=== PATIENT | male | born 2005 | race Caucasian/White ===

== ENCOUNTER 2024-08-22 11:58 | Outpatient (AMB) | payer OTHER, SELFPAY ==
--- NOTE | 2024-08-22 12:06 | AM.OFFWIN_ITS ---
Intake Vital Signs 08/22/24 12:07 Height 6 ft Weight 173 lb BMI 23.5 Pulse 80 Pulse Source Auscultation Temp 99 F Temp Source Oral Pulse Oximetry (%) 97 Oxygen Delivery Method Room Air Intake Visit Reasons: Sore throat Allergies No Known Allergies Allergy (Verified 08/22/24 12:07) Medication List - Last Reconciled 08/22/24 by MIRNA Herrera- No Known Home Meds HPI HPI Comments History of Present Illness Details Lauri Espino PCP: [facility] History - The patient is a 19-year-old male pres enting with a sore throat. - Symptoms began the previous day, with the sore throat being initially severe. - The condition has not worsened since o nset, now described as slightly leather fitter but persistent. - Throat spray offered only minor relief , with no administration of systemic analgesics such as acetaminophen or ibuprofen. - No notable systemic symptoms: no stoma ch ache, ear pain, or recent travel. Physical Exam General: Awake, alert. No apparent distress Eyes: Sclera and conjunctiva clear bilaterally Nose: Nares patent, turbinates within normal limits, no sinus tenderness with palpation bilaterally Ears: Tympanic membranes intact bilat, mildly full on L Throat: Moist mucosa membrane, pharynx + erythema no exudate, uvula midline, managing secretions, no ac adenopathy Cardiovascular: Regular rate and rhythm Respiratory: Clear to auscultation bilaterally, normal breathing observed Results Rapid strep negative Viral swab obtained results pending Assessment and Plan 1. Pharyngitis: Negative strep; Viral sw ab pending. He will be called w/ results out of work/school note today + tomorrow supportive care otc analgesics, fluids, rest EDU on reasons to RTO Patient Instructions - Use throat spray as needed for minor r elief. - Stay hydrated and maintain regular eat ing habits. - Follow up for further instructions bas ed on test outcomes. - Contact us if symptoms worsen or new s ymptoms appear. Consent Patient was informed and verbally consented to the use of an ambient scribe for clinic note documentation during this visit. Total time spent caring for the patient today was 30 minutes. This includes time spent before the visit reviewing the chart, time spent during the visit, and time spent after the visit on documentation, reviewing laboratory results, diagnostic imaging, medications, performing a medically necessary evaluation, counseling on diagnoses, care coordination, ordering appropriate tests, ordering appropriate medications, review of tests performed by other providers, reporting test results with the patient, communication with other healthcare providers. Results AMB Rapid Strep AMB Rapid Strep Negative Last Edit by Glynn Valencia MA on 08/22/24 12:19 Assessment & Plan Assessment & Plan (1) Pharyngitis: Code(s): J02.9 - Acute pharyngitis, unspecified Qualifiers: Pharyngitis/tonsillitis etiology: other specified organisms Qualified Code(s): J02.8 - Acute pharyngitis due to other specified organisms (2) URI, acute: Code(s): J06.9 - Acute upper respiratory infection, unspecified Plan . Orders: Orders AMB Rapid Strep Screen Today Z13.9 - Encounter for screening, unspecified SARS-CoV2/FLU/RSV Today J02.9 - Acute pharyngitis, unspecified, R09.89 - Other specified symptoms and signs involving the circulatory and respiratory systems Coding Level of Care Code Est Pt Level 4 (08012) Diagnoses Pharyngitis due to other organism J02.8 Pharyngitis/tonsillitis etiology: other specified organisms URI, acute J06.9
[2024-08-22 12:07] VITALS: PULSE 80; TEMP 37.2; O2SAT 97; BMI 23.5
--- OUTSIDE RECORDS SUMMARY | 2024-08-22 14:11 | XMS_ITS | Encounter Summary ---
Author Organization [facility] [place] [address] Care Team Providers Care Registered Nurse Cardiovascular Icu Name Role Phone Chelsea Zuniga MD Primary Care Provider Reason for Referral * Imaging (Routine) - Closed Specialty Diagnoses / Procedures Referred By Mallory patton Referred To Contact Radiology Diagnoses Breast mass in male Procedures US Breast Limited Left Drew Nicholas PA [address] [place] [address] Phone: tel: fax: [facility] Referral ID Status Reason Start Date Expiration Date Visits Re quested Visits Authorized [id number] Closed 08/04/2024 08/04/2025 1 1 Reason for Visit * Imaging (Routine) - Closed Specialty Diagnoses / Procedures Referred By Mallory patton Referred To Contact Radiology Diagnoses Breast mass in male Procedures US Breast Limited Left Drew Nicholas PA [address] [place] [address] Phone: tel: fax: [facility] Referral ID Status Reason Start Date Expiration Date Visits Re quested Visits Authorized [id number] Closed 08/04/2024 08/04/2025 1 1 Encounter Details Date Type Department Care Team (Latest Contact Info) Description 08/09/2024 2:20 PM EST - 08/09/2024 11:59 PM EST Hospital Encounter Radiology Department - [address] [phone] Breast mass in male Discharge Disposition: Home or Self Care Social History Tobacco Use Types Packs/Day Years Used Date Smoking Tobacco: Never Smokeless Tobacco: Never Alcohol Use Standard Drinks/Week Comments No 0 (1 standard drink = 0.6 oz pur e alcohol) Sex and Gender Information Value Date Recorded Sex Assigned at Not on file Legal Sex Male 9:35 PM EST Gender Identity Not on file Sexual Orientation Not on file documented as of this encounter Discharge Disposition Disposition Code Departure Means Destination Home or Self Care documented in this encounter Plan of Treatment Upcoming Encounters Date Type Department Care Team (Late st Contact Info) Description 08/29/2024 9:15 AM EDT Ancillary Procedure [facility] [address] [facility] [address] [place] [phone] 09/08/2024 3:00 PM EDT Consult Endocrinology - [address] [phone] Danile Ortiz MD [address] [place] [phone] 01/03/2025 8:30 AM EDT Office Visit Adult Medicine [place] - [address] [phone] Drew Nicholas PA [address] [place] [address] documented as of this encounter Procedures Procedure Name Priority Date/Time Associated Diagnosis Comments US BREAST LIMITED LEFT Routine 08/09/2024 2:36 PM EST Breast mass in male documented in this encounter Results * US Breast Limited Left (08/09/2024 2:36 PM EST) Anatomical Region Laterality Modality Breast Left Ultrasound 08/09/2024 2:37 PM EST Impressions 08/09/2024 2:42 PM EST Benign ultrasound findings. ?Asymmetric gynecomastia. BI-RADS CATEGORY: 2 - BENIGN RECOMMENDATION: Clinical management of left breast is recommended. -------- FINAL REPORT -------- Dictated By: Kelsey Boyce Dictated Date: 08/09/2024 14:37 ET Assigned Physician: Kelsey Boyce Reviewed and Electronically Signed By: Kelsey Boyce Signed Date: 08/09/2024 14:42 ET Workstation ID: [id number] Transcribed By: Self Edit Transcribed Date: 08/09/2024 14:37 ET Narrative 08/09/2024 2:42 PM EST CLINICAL: 19 years old, Male, palpable concern in the retroareolar left breast at the 6 o'clock position. COMPARISON: None. ?? TECHNIQUE: Ultrasound survey ??evaluation of the palpable area indicated by the patient in the retroareolar left breast was performed. ??Ultrasound evaluation of the true the right breast was also performed for comparison. FINDINGS: There is more prominent breast tissue in the retroareolar region of the left breast corresponding to the palpable area compared to the right breast. ??There is no evidence of morphologically suspicious mass. ??No cyst is visualized. ?? Procedure Note Kelsey Boyce MD - 08/09/2024 CLINICAL: 19 years old, Male, palpable concern in the retroareolar leftbreast at the 6 o'clock position. COMPARISON: None. TECHNIQUE: Ultrasound survey evaluation of the palpable area indicated bythe patient in the retroareolar left breast was performed. Ultrasoundevaluation of the true the right breast was also performed forcomparison. FINDINGS: There is more prominent breast tissue in the retroareolar region of theleft breast corresponding to the palpable area compared to the rightbreast. There is no evidence of morphologically suspicious mass. No cystis visualized. IMPRESSION: Benign ultrasound findings. Asymmetric gynecomastia. BI-RADS CATEGORY: 2 - BENIGN RECOMMENDATION: Clinical management of left breast is recommended. -------- FINAL REPORT -------- Dictated By: Kelsey Boyce Dictated Date: 08/09/2024 14:37 ET Assigned Physician: Kelsey Boyce Reviewed and Electronically Signed By: Kelsey Boyce Signed Date: 08/09/2024 14:42 ET Workstation ID: [id number] Transcribed By: Self Edit Transcribed Date: 08/09/2024 14:37 ET us Drew CHOI IMG US PROCEDURES Final Result documented in this encounter Visit Diagnoses Diagnosis Breast mass in male documented in this encounter Care Teams Registered Nurse Cardiovascular Icu Relationship Specialty Start Date End Date Chelsea Zuniga MD [address] [place] [phone] PCP - General Internal Medicine 04/19/24 documented as of this encounter
--- OUTSIDE RECORDS SUMMARY | 2024-08-22 14:11 | XMS_ITS | Encounter Summary ---
Author Organization [facility] Address [address] [place] [phone] Phone Care Team Providers Care Inspector Automatic Typewriter Name Role Phone Unavailable Primary Care Provider Unavailabl e Encounter Details Date Type Department Care Team (Late st Contact Info) Description 10/25/2017 Conversion [facility]counter [facility] [address] [address] Social History Tobacco Use Types Packs/Day Years Used Date Smoking Tobacco: Never Assessed Sex and Gender Information Value Date Recorded Sex Assigned at Not on file Legal Sex Male 6:10 PM EDT Gender Identity Not on file Sexual Orientation Not on file documented as of this encounter Plan of Treatment Not on file documented as of this encounter Visit Diagnoses Not on filedocumented in this encounter
--- OUTSIDE RECORDS SUMMARY | 2024-08-22 14:11 | XMS_ITS | Encounter Summary ---
Author Organization [facility] Address [address] [place] [address] Care Team Providers Care Sports Media Name Role Phone Chelsea Zuniga MD Primary Care Provider [phone] Reason for Visit * Reason Comments Follow-up Encounter Details Date Type Department Care Team (Late st Contact Info) Description 08/04/2024 3:30 PM EST Office Visit Adult Medicine [address] [phone] Chelsea Zuniga MD [address] [place] [phone] Breast mass in male (Primary Dx); Right wrist pain; Screen for STD (sexually transmitted disease) Social History Tobacco Use Types Packs/Day Years [...] on file documented as of this encounter Last Filed Vital Signs Vital Sign Reading Time Taken Comments Blood Pressure 114/74 08/04/2024 3:10 PM EST Pulse 74 08/04/2024 3:10 PM EST Temperature 36.6 ??C (97.9 ??F) 08/04/2024 3:10 PM ES T Respiratory Rate 14 08/04/2024 3:10 PM EST Oxygen Saturation - - Inhaled Oxygen Concentration - - Weight 77.1 kg (170 lb) 08/04/2024 3:10 PM EST Height 182.9 cm (6') 08/04/2024 3:10 PM EST Body Mass Index 23.06 08/04/2024 3:10 PM EST documented in this encounter Patient Instructions * Attachments The following attachments cannot be sent through Care Everywhere. * Wrist: Exercises (Barbadian) documented in this encounter Progress Notes * Chelsea Zuniga MD - 08/04/2024 3:30 PM EST Images from the original note were not included. CHIEF COMPLAINT: Follow-up IDENTIFIER: Brayden Keith is a 19 y.o. old male. HPI: Patient is a 19-year-old male who is here for a follow-up visit. Patient reports that 2-3 months ago went snow boarding and reports that he fell while doing so , hereports that initially had pain in his tail bone which resolved, he reports that during this time he felt on his right wrist and twisted it and since then has been having intermittent pain when he moves his wrist. No swelling or bruising. Patient followed with cardiology and is scheduled for a stress test on 08/25/2024. Patient was also ordered for mammogram for a left-sided mass under the nipple, has not had it scheduled yet, will stop by radiology. Has not noticed any changes to the size of the mass or any changesto the overlying skin. Patient request STI testing for screening, no concerns ROS: Review of systems: Pertinent items are noted in HPI PAST MEDICAL HISTORY: Patient Active Problem List Diagnosis Date Noted Chest pain 07/13/2024 SOCIAL HISTORY: Social History Tobacco Use Smoking status: Never Smokeless tobacco: Never Substance Use Topics Alcohol use: No FAMILY HISTORY: Family Status Relation Name Status Mother (Not Specified) Father MGM (Not Specified) Sister isa Alive No partnership data on file Family History Problem Relation Name Age of Onset Drug abuse Mother Drug abuse Father Diabetes Maternal Grandmother Hypertension ADD / ADHD Sister isa ACTIVE MEDICATIONS: No outpatient medications have been marked as taking for the 08/04/24 encounter (Office Visit) with Chelsea Zuniga MD. ALLERGIES: Patient has no known allergies. PHYSICAL EXAM: Blood pressure 114/74, pulse 74, temperature 36.6 ??C (97.9 ??F), temperature source Temporal, resp. rate 14, height 1.829 m (72 ), weight 77.1 kg (170 lb). Body mass index is 23.06 kg/m??. BMI is 18.5 to 24.9 (within the normal range) and will be followed APPEARANCE: Alert and in no acute distress EYES: PERRLA, conjunctiva and sclera normal HEART: RRR with normal S1 and S2, no murmurs, no gallops, no JVD appreciated CHEST: small lump under left nipple non tender to touch, no overlying skin changes LUNG: clear to auscultation bilaterally EXTREMITIES: Extremities warm and well perfused without clubbing, cyanosis, or edema NEURO: Awake, alert and oriented x 3 and Normal gait LABS: IMPRESSION: 1. Screen for STD (sexually transmitted disease) 2. Breast mass in male 3. Right wrist pain ASSESSMENT/PLAN: Brayden was seen today for follow-up. Diagnoses and all orders for this visit: Screen for STD (sexually transmitted disease) (Primary) - Treponema pallidum antibody with reflex to RPR and particle agglutination; Future - HIV 1,2 antibody, p24 antigen with reflex to differentiation; Future - Hepatitis C antibody; Future - Chlamydia trachomatis and Neisseria gonorrhoeae molecular study; Future Breast mass in male Right wrist pain Plan Patient reports that 2-3 months ago went snow boarding and reports that he fell while doing so , hereports that initially had pain in his tail bone which resolved, he reports that during this time he felt on his right wrist and twisted it and since then has been having intermittent pain when he moves his wrist. No swelling or bruising. Likely mild strain, range of motion is intact, no swelling or bruising to suggest fracture. Patient advised to ice the area, given printout for home exercise program. Patient followed with cardiology and is scheduled for a stress test on 08/25/2024. Patient was also ordered for mammogram for a left-sided mass under the nipple, has not had it scheduled yet, will stop by radiology. Has not noticed any changes to the size of the mass or any changesto the overlying skin. Patient request STI testing for screening, no concerns. STI panel ordered. Brayden Keith has agreed to have his blood tested for the HIV antibody. He has been given the opportunity to ask questions and understands that: 1. The test is entirely voluntary. 2. The test results will become part of his medical record. 3. The test results may be released to a hospital if necessary for his care and the protection of the hospital. 4. Further release of the results of the HIV antibody testing to any other outside republican without his specific consent is prohibited by law. 5. If his test result is positive, the results will be checked by a second, more specific test. Follow up in about 6 months (around 02/01/2025) for Physical exam. Orders Placed This Encounter Procedures Chlamydia trachomatis and Neisseria gonorrhoeae molecular study Treponema pallidum antibody with reflex to RPR and particle agglutination HIV 1,2 antibody, p24 antigen with reflex to differentiation Hepatitis C antibody Recent Results (from the past 4 weeks) ECG 12 lead Collection Time: 08/03/24 11:32 AM Result Value Ref Range Ventricular Rate ECG 56 BPM Atrial Rate 56 BPM P-R Interval 144 ms QRS Duration 90 ms Q-T Interval 416 ms QTc 401 ms P Wave [place] 68 degrees R [place] 86 degrees T [place] 39 degrees ECG Interpretation Sinus bradycardia Otherwise normal ECG No previous ECGs available Confirmed by SARABJIT MONTEIRO ([id number]) on 08/03/2024 11:56:33 AM Chelsea Zuniga MD on 08/04/2024 at 3:44 PM EST documented in this encounter Plan of Treatment Upcoming Encounters Date Type Department Care Team (Late st Contact Info) Description 08/29/2024 9:15 AM EDT Ancillary Procedure [facility] - [address] [place] [address] 09/08/2024 3:00 PM EDT Consult Endocrinology [address] [phone] Daniel Ortiz MD [address] [place] [phone] 01/03/2025 8:30 AM EDT Office Visit Adult Medicine [place] - [address] [phone] Drew Nicholas PA [address] [place] [address] documented as of this encounter Results * Chlamydia trachomatis and Neisseria gonorrhoeae molecular study (08/04/2024 4:43 PM EST) [facility] Neisseria gonorrhoeae PCR Negative Negative LAB MOLECULAR DIAGNOSTICS METHOD 08/05/2024 12:00 PM EST [facility] Chlamydia trachomatis PCR Negative Negative LAB MOLECULAR DIAGNOSTICS METHOD 08/05/2024 12:00 PM EST [facility] Swab First stream urine specimen / Unknown Non-blood Collection / Unknown 08/04/2024 4:43 PM EST 08/04/2024 4:43 PM EST Chelsea Zuniga MD LAB MICROBIOLOGY - GENERAL ORDER REGINO Final Result [facility] [address] [place] [address], [place] [phone] * Hepatitis C antibody (08/04/2024 4:43 PM EST) [facility] Hepatitis C Antibody Negative Negative LAB CHEMISTRY METHOD 08/04/2024 7:59 PM EST [facility] Blood Venous blood specimen / Unknown Venipuncture / Unknown 08/04/2024 4:43 PM EST 08/04/2024 4:43 PM EST us Chelsea Zuniga MD LAB BLOOD ORDERABLES Final Resul t [facility] [address] [place] [address], [place] [phone] * HIV 1,2 antibody, p24 antigen with reflex to differentiation (08/04/2024 4:43 PM EST) [facility] HIV Combo AB/AG Negative Negative LAB CHEMISTRY METHOD 08/04/2024 8:00 PM EST [facility] Blood Venous blood specimen / Unknown Venipuncture / Unknown 08/04/2024 4:43 PM EST 08/04/2024 4:43 PM EST Narrative [facility] - 08/04/2024 8:00 PM EST This assay is a 4th generation assay allowing for earlier detection of HIV infection by detecting the presence of the HIV-1 p24 antigen as well as the traditional antibodies to HIV type 1 (including group O) and type 2. ??Use of a 4th generation assay is the current CDC recommendation for HIV screening. us Chelsea Zuniga MD LAB BLOOD ORDERABLES Final Resul t [facility] [address] [place] [address], [place] [phone] * Treponema pallidum antibody with reflex to RPR and particle agglutination (08/04/2024 4:43 PM EST) T. Pallidum Antibodies Negative Negative LAB CHEMISTRY METHOD 08/04/2024 7:31 PM EST [facility] Blood Venous blood specimen / Unknown Venipuncture / Unknown 08/04/2024 4:43 PM EST 08/04/2024 4:43 PM EST us Chelsea Zuniga MD LAB BLOOD ORDERABLES Final Resul t [facility] [address] [place] [address], [place] [phone] documented in this encounter Visit Diagnoses Diagnosis Breast mass in male- Primary Right wrist pain Pain in joint, forearm Screen for STD (sexually transmitted disease) Screening examination for venereal disease documented in this encounter Care Teams Sports Media Relationship Specialty Start Date End Date Chelsea Zuniga MD [address] [place] [phone] PCP - General Internal Medicine 04/19/24 documented as of this encounter
--- OUTSIDE RECORDS SUMMARY | 2024-08-22 14:11 | XMS_ITS | Clinical Summary ---
Author Organization [facility] Address [address] [place] [phone] Phone Care Team Providers Care Furrier Shop Supervisor Name Role Phone Unavailable Primary Care Provider Unavailabl e Immunizations Immunization Administration Dates Next Due DTaP 10/28/2005,2004,2004 DTaP / Hep B / IPV 01/01/2005 Hep B, ped/adol 01/01/2005,2004,2004 Hib (PRP-T) 10/28/2005, 5,2004,2004 IPV 2004,2004 Influenza, injectable, quadr ivalent, preservative free 03/08/2008 MMR 01/05/2007 Pneumococcal Conjugate 10/28/2005,2004,2004,2004 Varicella 06/24/2007 Family History Relation Name Status Comments Father Alive Father's Brother Alive Father's Sister Alive Maternal Grandfather Alive Maternal Grandmother Alive DM Type I Mother Alive Other Alive Siblings: Paternal Grandfather Alive Paternal Grandmother Alive Social History Tobacco Use Types Packs/Day Years Used Date Smoking Tobacco: Never Assessed Sex and Gender Information Value Date Recorded Sex Assigned at Not on file Legal Sex Male 6:10 PM EDT Gender Identity Not on file Sexual Orientation Not on file Plan of Treatment Health Maintenance Due Date Last Done Comments IPV Vaccines (4 of 4 - 4-dose series) 2008 01/01/2005, 2004, 2004 Varicella Vaccines (2 of 2 - 2-dose childhood series) 2008 06/24/2007 DTaP,Tdap,and Td Vaccines (5 - Tdap) 2015 10/28/2005, 01/01/2005, 2004, Additional history exists HPV Vaccines (1 - Male 3-dose series) 2019 Men B Vaccine (1 of 2 - Standard) 2020 Influenza Vaccines (#1) 2024 03/08/2008 COVID-19 Vaccine (1 - 2023- season) 2024 Hepatitis B Vaccines Completed 01/01/2005, 01/01/2005, 2004, Additional history exists HIB Vaccines Completed 10/28/2005, 12/07, 2004, Additional history exists Pneumococcal Vaccine Completed 10/28/2005, 01/01/2005, 2004, Additional history exists MMR Vaccines Completed 01/05/2007 Hepatitis A Vaccines Aged Out No long er eligible based on patient's age to complete this topic Meningococcal Vaccine Aged Out No macario monico eligible based on patient's age to complete this topic
--- OUTSIDE RECORDS SUMMARY | 2024-08-22 14:11 | XMS_ITS | Clinical Summary ---
Author Organization [facility] [address] [place] [address] Address [address], [place] Phone Care Team Providers Care Pocket And Pulley Machine Operator Name Role Phone Chelsea Zuniga MD Primary Care Provider [phone] Allergies No known active allergies Medications No known medications Active Problems Problem Noted Date Diagnosed Date Chest pain 07/13/2024 Encounters Date Type Department Care Team Description 08/09/2024 2:20 PM EST - 08/09/2024 11:59 PM EST Hospital Encounter Radiology Department [address] [phone] Breast mass in male Discharge Disposition: Home or Self Care 08/04/2024 3:30 PM EST Office Visit Adult Medicine [address] [phone] Chelsea Zuniga MD Breast mass in male (Primary Dx); Right wrist pain; Screen for STD (sexually transmitted disease) 08/03/2024 10:50 AM EST Office Visit [facility] [address] [place] [address] Antionette Oseguera MD Chest pain, unspecified type (Primary Dx) 07/18/2024 11:00 AM EST Office Visit [facility] - [place] [address] [place] [address] Debbie Sorto MD Foreign body (FB) in soft tissue (Primary Dx); Foreign body of finger 07/08/2024 3:00 PM EST Consult Orthopedic Surgery - [place] [address] [place] [address] Esther Gagnon PA Foreign body of finger 07/04/2024 10:30 AM EST Office Visit Adult Medicine [address] [phone] Drew Nicholas PA Breast mass in male (Primary Dx) 07/04/2024 Telephone Adult Medicine [address] [phone] Chelsea Zuniga MD Referral from Last 3 Months Immunizations Name Administration Dates Next Due DTaP (Infanrix) 6wks to less than 7yo ,10/28/2005,2004,07/09 [id number] (Pentacel) 2mo to less than 5yo 10/28/2005,01/01/2005,2004,07/09 [id number] (Pediarix) 6 w ks to less than 7yo 01/01/2005 Hepatitis B Pediatric (Enger ix B; Recombivax HB) to less than 20 yo 01/01/2005,2004,2004 IPV Inactivated polio (Ipol) 6wks and older 08/01/2009,2004,2004 Influenza trivalent, with pr eservative (Fluzone; Afluria) 6mo and older 03/08/2008 MMR, measles mumps and rubel la Live (Priorix; M-M-R II) 12mo and older 07/05/2008,01/05/2007 Meningococcal MCV4P 07/22/2021,04/16/2020 Pneumococcal Conjugate Vacci ne, 7 Valent 10/28/2005,01/01/2005,2004,07/19 Tdap Tetanus diptheria acell ular pertussis (Boostrix; Adacel) 7yo and older 04/02/2017 Varicella live (Varivax) 12m o and older 07/05/2008,06/24/2007 Medical History Medical History Date Comments Psoriasis DX:Psoriasis 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 Inserts Dental caries 07/28/2019 DX:Dental caries Eczema 07/28/2019 DX:Eczema Family circumstance 07/28/2019 DX:Family ci rcumstance; COMMENT: 01/20/19 50 A filed. ( no details in transfer record) 02/05/18 OV note state he is in legal custody paternal sister (? Paternal Aunt) Cat scratch fever 08/23/2010 DX:Cat scratch fever; COMMENT: 05/20/2017 switched Augmentin to Zithromax Seen 05/18/17 ? Reactive axillary lymphadenopathy. Lesion on hand. No history of cat scratch. Cat had not scratche din a year Asthma 08/23/2010 DX:Asthma; COMME NT: h/o hosp age 1; ER visits as toddler Family History Medical History Relation Name Comments Drug abuse Father Diabetes Maternal Grandmother Hyperte nsion Drug abuse Mother ADD / ADHD Sister isa Relation Name Status Comments Father Maternal Grandmother Mother Sister isa Alive Social History Tobacco Use Types Packs/Day Years Used Date Smoking Tobacco: Never Smokeless Tobacco: Never Tobacco Cessation:Counseling Given: Not Answered Alcohol Use Standard Drinks/Week Comments No 0 (1 standard drink = 0.6 oz pur e alcohol) Sex and Gender Information Value Date Recorded Sex Assigned at Not on file Legal Sex Male 9:35 PM EST Gender Identity Not on file Sexual Orientation Not on file Obstetrics History Last Filed Vital Signs Vital Sign Reading Time Taken Comments Blood Pressure 114/74 08/04/2024 3:10 PM EST Pulse 74 08/04/2024 3:10 PM EST Temperature 36.6 ??C (97.9 ??F) 08/04/2024 3:10 PM ES T Respiratory Rate 14 08/04/2024 3:10 PM EST Oxygen Saturation 98% 08/03/2024 11:29 AM EST Inhaled Oxygen Concentration - - Weight 77.1 kg (170 lb) 08/04/2024 3:10 PM EST Height 182.9 cm (6') 08/04/2024 3:10 PM EST Body Mass Index 23.06 08/04/2024 3:10 PM EST Plan of Treatment Upcoming Encounters Date Type Department Care Team (Late st Contact Info) Description 08/29/2024 9:15 AM EDT Ancillary Procedure [facility] - [facility] [address] [facility] [address] [place] [address] 09/08/2024 3:00 PM EDT Consult Endocrinology - [address] [phone] Daniel Ortiz MD [address] [place] [address] 01/03/2025 8:30 AM EDT Office Visit [facility] - [address] [phone] Drew Nicholas PA [address] [place] [address] Health Maintenance Due Date Last Done Comments HPV Vaccines (1 - Male 3-dose series) 2019 Meningococcal B Vacine (1 of 2 - Standard) 2020 Depression Screening 05/10/2022 Social Influencers of Health Screening 05/10/2022 Annual Well Child Visit (3-21 years old) 07/22/2022 07/22/2021, 04/16/2020 COVID-19 Vaccine ( - 2023- season) 2024 Influenza Vaccine (#1) 2024 03/08/2008 Postp oned from 02/07/2024 (Patient Refused) Cholesterol Screening (Lipid Panel) 07/22/2026 07/22/2021 DTaP,Tdap,and Td Vaccines (7 - Td or Tdap) 04/02/2027 04/02/2017, 08/01/2009, 10/28/2005, Additional history exists Hepatitis B Vaccines Completed 01/01/2005, 01/01/2005, 2004, Additional history exists HIB Vaccines Completed 10/28/2005, 10/07, 01/01/2005, Additional history exists Pneumococcal Vaccine: Pediatrics (0 to 5 Years) and At-Risk Patients (6 to 64 Years) Completed 10/28/2005, 01/01/2005, 2004, Additional history exists MMR Vaccines Completed 07/05/2008, 01/05/2007 Varicella Vaccines Completed 07/05/2008, 06/24/2007 IPV Vaccines Completed 08/01/2009, 10/07, 01/01/2005, Additional history exists Meningococcal ACWY Vaccine Completed 07/22/2021, HIV Screening Completed 08/04/2024 Hepatitis C Screening Completed 08/04/2024 Hepatitis A Vaccines Aged Out No long er eligible based on patient's age to complete this topic RSV Immunization Patients Under 20 months Aged Out No longer eligible based on patient's age to complete this topic Procedures Procedure Name Priority Date/Time Associated Diagnosis Comments US BREAST LIMITED LEFT Routine 2:36 PM EST Breast mass in male EXTERNAL ULTRASOUND REPORT 08/08/2024 TREPONEMA PALLIDUM ANTIBODY WITH REFLEX TO RPR AND PARTICLE AGGLUTINATION Routine 08/04/2024 4:43 PM EST Screen for STD (sexually transmitted disease) HIV 1, 2 ANTIBODY, P24 ANTIGEN WITH REFLEX TO DIFFERENTIATION Routine 08/04/2024 4:43 PM EST Screen for STD (sexually transmitted disease) HEPATITIS C ANTIBODY Routine 08/04/2024 4:43 PM EST Screen for STD (sexually transmitted disease) CHLAMYDIA TRACHOMATIS AND NEISSERIA GONORRHOEAE PCR Routine 08/04/2024 4:43 PM EST Screen for STD (sexually transmitted disease) ECG 12-LEAD Routine 08/03/2024 11:32 AM EST Chest pain, unspecified type HI INCISION & REMOVAL FOREIGN BODY SUBCUTANEOUS TISSUES SIMPLE Routine 07/18/2024 12:12 PM EST Foreign body (FB) in soft tissue Foreign body of finger XR FINGERS 2+ VIEWS LEFT Routine 07/08/2024 3:04 PM EST Foreign body (FB) in soft tissue LIPID PANEL Routine 07/22/2021 from Last 3 Months or Most Recently Relevant to Health Maintenance Results * US Breast Limited Left (08/09/2024 [...] Signed Date: 08/09/2024 14:42 ET Workstation ID: [id number] Transcribed By: Self Edit Transcribed Date: 08/09/2024 [...] Signed Date: 08/09/2024 14:42 ET Workstation ID: [id number] Transcribed By: Self Edit Transcribed Date: 08/09/2024 14:37 ET us Drew CHOI IMG US PROCEDURES Final Result * External Ultrasound Report (08/08/2024) Anatomical Region Laterality Modality Ultrasound us Provider [facility] IMG US PROCEDURES Final Result * Hepatitis C antibody (08/04/2024 4:43 PM EST) Hepatitis C Antibody Negative Negative LAB CHEMISTRY METHOD 08/04/2024 7:59 PM EST [facility] Blood Venous blood specimen / Unknown Venipuncture / Unknown 08/04/2024 4:43 PM EST 08/04/2024 4:43 PM EST us Chelsea Zuniga MD LAB BLOOD ORDERABLES Final Resul t [facility] [address] [place] [address], [place] [phone] * HIV 1,2 antibody, p24 antigen with reflex to differentiation (08/04/2024 4:43 PM EST) HIV Combo AB/AG Negative Negative LAB CHEMISTRY METHOD 08/04/2024 8:00 PM EST [facility] Blood Venous blood specimen / Unknown Venipuncture / Unknown 08/04/2024 4:43 PM EST 08/04/2024 4:43 PM EST Narrative [facility] - 08/04/2024 8:00 PM EST This [...] MD LAB BLOOD ORDERABLES Final Resul t Performing Organization Address City/[facility]/ZIP Co de Phone Number [facility] [address] [place] [address], [place] [phone] * Treponema pallidum antibody with reflex to RPR and particle agglutination (08/04/2024 4:43 PM EST) [facility] T. Pallidum Antibodies Negative Negative LAB CHEMISTRY METHOD 08/04/2024 7:31 PM EST [facility] Blood Venous blood specimen / Unknown Venipuncture / Unknown 08/04/2024 4:43 PM EST 08/04/2024 4:43 PM EST us Chelsea Zuniga MD LAB BLOOD ORDERABLES Final Resul t Performing Organization Address [facility]/ZIP Co de Phone Number [facility] [address] [place] [address], [place] [phone] * Chlamydia trachomatis and Neisseria gonorrhoeae molecular study (08/04/2024 4:43 PM EST) [facility] Neisseria gonorrhoeae PCR Negative Negative LAB MOLECULAR DIAGNOSTICS METHOD 08/05/2024 12:00 PM EST [facility] Chlamydia trachomatis PCR Negative Negative LAB MOLECULAR DIAGNOSTICS METHOD 08/05/2024 12:00 PM EST [facility] Swab First stream urine specimen / Unknown Non-blood Collection / Unknown 08/04/2024 4:43 PM EST 08/04/2024 4:43 PM EST us Chelsea Zuniga MD LAB MICROBIOLOGY - GENERAL ORDER REGINO Final Result Performing Organization Address [facility] Co de Phone Number [facility] [address] [place] [address], * ECG 12 lead (08/03/2024 11:32 AM EST) Ventricular Rate ECG 56 BPM GEMUSE Atrial Rate 56 BPM GEMUSE P-R Interval 144 ms GEMUSE QRS Duration 90 ms GEMUSE Q-T Interval 416 ms GEMUSE QTc 401 ms GEMUSE P Wave [place] 68 degrees GEMUSE R [place] 86 degrees GEMUSE T [place] 39 degrees GEMUSE ECG Interpretation Sinus bradycardia Otherwise normal ECG No previous ECGs available Confirmed by ANTIONETTE OSEGUERA ([id number]) on 08/03/2024 11:56:33 AM GEMUSE 08/03/2024 11:3 2 AM EST 08/03/2024 11:56 AM EST Antionette Oseguera MD ECG ORDERABLES Final Result Performing Organization Address [facility] Co de Phone Number GEMUSE * HI INCISION & REMOVAL FOREIGN BODY SUBCUTANEOUS TISSUES SIMPLE (07/18/2024 12:12 PM EST) Narrative Debbie Sorto MD - 07/18/2024 12:12 PM EST Debbie Sorto MD ? 07/18/2024 12:17 PM Foreign Body Removal Date/Time: 07/18/2024 12:12 PM Performed by: Debbie Sorto MD Authorized by: Debbie Sorto MD ?? Consent: ??Consent obtained: ??Verbal ??Consent given by: ??Patient ??Risks, benefits, and alternatives were discussed: yes ??Alternatives discussed: ??No treatment [place] protocol: ??Procedure explained and questions answered to patient or proxy's satisfaction: yes ?Imaging studies available: yes ?Patient identity confirmed: ??Verbally with patient Location: ??Location: ??Finger ??Finger location: ??L index finger ??Depth: ??Subcutaneous ??Tendon involvement: ??None Anesthesia: ??Anesthesia method: ??Local infiltration ??Local anesthetic: ??Lidocaine 1% WITH epi Procedure type: ??Procedure complexity: ??Simple Procedure details: ??Scalpel size: ??15 ??Incision length: ??6mm ??Localization method: ??Visualized Post-procedure details: ??Confirmation: ??No additional foreign bodies on visualization ??Skin closure: ??Steri-Strips ??Dressing: ??Sterile dressing ??Patient tolerance of procedure: ??Tolerated well, no immediate complications Comments: ?? The patient is here today get the small foreign body removed from the dorsum of his left index finger. ??It is a small rock. ??I again reviewed the plan with him and the procedure. ??Patient verbalized understanding and consented. ??We had the patient washed up his hands. ??I then prepped the index finger with Betadine and alcohol. ??Approximately one half of a cc of 1% lidocaine with epinephrine was injected over the dorsum of the middle phalanx. ??We gave that a chance to take effect. ??I then prepped the area again. ??In a sterile fashion I took a 15 blade made a small incision over the site of the foreign body. ??Splinter forceps were used to spread the tissue and also probe to remove the bit of rock. ??I did have to lengthen the incision about another millimeter or 2 and spread gently with some small scissors. ??We were able to remove a little bit of rock. ??I then rinsed the area with the remaining lidocaine. ??A quarter of a Steri-Strip was utilized to approximate the skin along with some benzoin. ??Light cotton was applied and the index finger was lightly wrapped to the neighboring long finger. ??Postoperative instructions were reviewed with the patient and some extra dressings were provided. ??He verbalized understanding of the care of the wound and also understood to call if there are any issues that arose. ??Patient tolerated the procedure well and was discharged. us Debbie Sorto MD IN CLINIC/BEDSIDE ORDERABLES Final Result * XR Fingers 2+ Views Left (07/08/2024 3:04 PM EST) Anatomical Region Laterality Modality Upper Extremities, Fingers Left Compu aline Radiography Narrative 07/08/2024 3:17 PM EST Date of Visit: 07/08/2024 Reason for visit: Left index finger foreign body Views: AP, lateral oblique left index finger Comparison: None Findings: Left index finger metallic foreign body visualized in the skin at the level of the proximal phalanx, dorsal aspect Impression: Left index finger foreign body Esther CHOI IMG XR PROCEDURES Final Resul t * Lipid panel (07/22/2021) LDL/HDL Ratio 4 0 - 4 Triglycerides 104 0 - 150 mg/dL Cholesterol 147 0 - 200 mg/dL HDL 41 >=40 mg/dL LDL Cholesterol 86 0 - 100 mg/dL Blood Venous blood specimen / Unknown Historical Provider LAB BLOOD ORDERABLES Nadja reina Result from Last 3 Months or Most Recently Relevant to Health Maintenance Insurance [employer] Care Teams Pocket And Pulley Machine Operator Relationship Specialty Start Date End Date Chelsea Zuniga MD [address] [place] [phone] PCP - General Internal Medicine 04/19/24
--- OUTSIDE RECORDS SUMMARY | 2024-08-22 14:11 | XMS_ITS | Encounter Summary ---
Author Organization [facility] Address [address] [place] [address] Care Team Providers Care C Application Developer Name Role Phone Chelsea Zuniga MD Primary Care Provider [phone] Reason for Referral * Cardiac Stress Testing (Routine) - Authorized Specialty Diagnoses / Procedures Referred By Mallory patton Referred To Contact Cardiology Diagnoses Chest pain, unspecified type Procedures Exercise stress test Sarabjit Oseguera MD [address] [place] [address] [place] [address] Phone: tel: fax: [facility] Referral ID Status Reason Start Date Expiration Date V isits Requested Visits Authorized [id number] Authorized 08/03/2024 08/03/2025 1 1 Reason for Visit * Reason Comments new patient * Consultation (Routine) - Closed Specialty Diagnoses / Procedures Referred By Mallory patton Referred To Contact Cardiology Diagnoses Chest pain, unspecified type Drew Nicholas PA [address] [place] [address] Phone: tel: fax: [facility] - [facility] [address] [facility] [address] [place] [address] Phone: tel: fax: Referral ID Status Reason Start Date Expiration Date V isits Requested Visits Authorized [id number] Closed Specialty Services Required 05/04/2024 05/04/2025 1 1 Encounter Details Date Type Department Care Team (Late st Contact Info) Description 08/03/2024 10:50 AM EST Office Visit [facility] [address] [place] [address] Sarabjit Oseguera MD [address] [place] [address] [address] [place] [address] Chest pain, unspecified type (Primary Dx) Social History Tobacco Use Types Packs/Day Years [...] Sign Reading Time Taken Comments Blood Pressure 116/77 08/03/2024 11:29 AM EST Pulse 54 08/03/2024 11:29 AM EST Temperature - - Respiratory Rate - - Oxygen Saturation 98% 08/03/2024 11:29 AM EST Inhaled Oxygen Concentration - - Weight 78.5 kg (173 lb) 08/03/2024 11:29 AM EST Height 182.9 cm (6') 08/03/2024 11:29 AM EST Body Mass Index 23.46 08/03/2024 11:29 AM EST documented in this encounter Progress Notes * Sarabjit Oseguera MD - 08/03/2024 10:50 AM EST Images from the original note were not included. [facility] PCP: Chelsea Zuniga MD HPI: History of Present Illness The patient is a 19-year-old male who presents for evaluation of chest pain. 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 Two months ago, he experienced an episode of tachycardia, characterized by a rapid heart rate persisting for 2 to 3 hours post-exercise, accompanied by mild chest discomfort. This prompted him to seek immediate medical attention at the emergency room, where an electrocardiogram (EKG) was performed and yielded normal results. Subsequently, he consulted his primary care physician, who recommended a cardiology referral. During his MMA sessions, he reported achieving peak heart rates of 180 to 190 beats per minute without any associated chest pain. However, he noted that the chest pain typically manifested during periods of rest when his heart rate remained elevated. He also mentioned a recent gym visit 2 days prior, during which his heart rate peaked at 189 beats per minute but subsequently normalized. He is uncertain if these episodes are random or specifically related to his MMA training. SOCIAL HISTORY - Admits to using marijuana FAMILY HISTORY - No family history of heart disease that he is aware of Results Testing EKG showed no abnormalities. ACTIVE MEDICATIONS: No outpatient medications have been marked as taking for the 08/03/24 encounter (Appointment) with Sarabjit Oseguera MD. PAST MEDICAL HISTORY: Patient Active Problem List Diagnosis Chest pain DVT (deep venous thrombosis) ([facility]) ALLERGIES: No Known Allergies FAMILY HISTORY: Family History Problem Relation Name Age of Onset Drug abuse Mother Drug abuse Father Diabetes Maternal Grandmother Hypertension ADD / ADHD Sister isa SOCIAL HISTORY: Social History Tobacco Use Smoking status: Never Smokeless tobacco: Never Substance Use Topics Alcohol use: No REVIEW OF SYSTEM: Constitutional: No appetite Loss, chills, dizziness, fever, night Sweats Eyes: Denies blurred vision, discharge, eye irritation, spots in vision, vision loss Head and Neck: Denies any headache, neck pain Ears, Nose, Mouth, Throat: No issues Cardiovascular: Denies chest pain/pressure, claudication, irregular heart beat, orthopnea, palpitations, syncope Respiratory: Denies cough, hemoptysis, SOB, sputum production, wheezing Gastrointestinal: Denies any abdominal distention, pain, black stools, diarrhea, dysphagia, vomiting Genitourinary: Denies dysuria, flank pain Musculoskeletal: Denies any joint pain or swelling other than mention in HPI Integumentary: Denie any skin rash or ulcer, pruritus Neurological: Denies any abnormal gait or focal weakness, headache, numbness, seizures, slurred speech Psychiatric: Denies any delusions, emotional problems, homicidalideation, suicidal ideation Hematologic: Denies any bleeding tendency, hemorrhage PHYSICAL EXAM: There were no vitals filed for this visit. Appearance: No Acute Distress, Alert Head Exam: Normocephalic and Atraumatic Eyes: Mild Palor, Sclera Anicteric, PERRL, EOMI Neck: Supple, Non-tender, No carotid bruit, thyromegaly or lymphadenopathy Pulmonary: No Accessory Muscle Use, clear to auscultate bilaterally Cardiovascular: JVD/Rhythm/Heart Sound/Added sound-S1 and S2 regular rate and rhythm, no murmur, nogallop or rub Abdominal Inspection: Normal, Soft, Non-tender, Bowel Sounds Present, No Hepatosplenomegaly Rectal Exam: Deferred Extremity: Peripheral Pulses are palpable and symmetrical, no leg edema Musculoskeletal: No obvious joint pain, swelling or deformity Skin: Skin Color Normal, No rash or visible ulcer on limited examination Hematological: No lymphadenopathy or mass Psychiatry: anxiety +, no delusion EKG: No results found for this or any previous visit (from the past 4464 hours). TESTING: No results found for: CBCDIF , BMP , PCTLIPID , TSH , BNP PROBLEM LIST: Chest pain, unspecified type ASSESSMENT/PLAN: Assessment & Plan 1. Chest pain - Symptoms do not indicate a cardiac blockage - Ability to participate in high-intensity activities like MMA - Chest pain not related to a blockage - Heart rate normalized after exercise, which is usually expected - Stress test will be ordered to further evaluate condition - Advised to continue regular activities, including exercise, without any restrictions I spent 35 minutes for this encounter with the patient, including >50% time spent with direct patient contact for history taking, review of system, physical examination, discussion of the lab and test result and management plan as well as in chart review,indipendent review of imaging along with my own interpretation, documentation and communicating with reffering physician. The [facility] team will continue to co-manage this patient following the plan of care as established by my initial visit and as per AHA guidelines for ongoing management and surveillance of Chest pain Thiswill include medication titration, initiation of appropriate medications and further titration, anddiagnostic studies to manage this disease process. documented in this encounter Plan of Treatment Upcoming Encounters Date Type Department Care Team (Late st Contact Info) Description 08/29/2024 9:15 AM EDT Ancillary Procedure [facility] - [address] [place] [address] 09/08/2024 3:00 PM EDT Consult Endocrinology [address] [phone] Daniel Ortiz MD [address] [place] [address] 01/03/2025 8:30 AM EDT Office Visit [facility] [address] [phone] Drew Nicholas PA [address] [place], [place] Scheduled Orders Name Type Priority Associated Diagnoses Orde r Schedule Exercise stress test Cardiac Nuclear Medicine Routine Chest pain, unspecified type 1 Occurrences starting 08/03/2024 until 08/03/2025 documented as of this encounter Procedures Procedure Name Priority Date/Time Associated Diagnosis Comments ECG 12-LEAD Routine 08/03/2024 11:32 AM EST Chest pain, unspecified type documented in this encounter Results * ECG 12 lead (08/03/2024 11:32 AM EST) Ventricular Rate ECG 56 BPM GEMUSE Atrial Rate 56 BPM GEMUSE P-R Interval 144 ms GEMUSE QRS Duration 90 ms GEMUSE Q-T Interval 416 ms GEMUSE QTc 401 ms GEMUSE P Wave [place] 68 degrees GEMUSE R [place] 86 degrees GEMUSE T [place] 39 degrees GEMUSE ECG Interpretation Sinus bradycardia Otherwise normal ECG No previous ECGs available Confirmed by SARABJIT OSEGUERA ([id number]) on 08/03/2024 11:56:33 AM GEMUSE 08/03/2024 11:3 2 AM EST 08/03/2024 11:56 AM EST Sarabjit Oseguera MD ECG ORDERABLES Final Result GEMUSE documented in this encounter Visit Diagnoses Diagnosis Chest pain, unspecified type- Primary documented in this encounter Orders Outpatient Referral Count Last Ordered Date Fir st Ordered Date AMB REFERRAL TO CARDIOLOGY 08/03/2024 documented in this encounter Care Teams C Application Developer Relationship Specialty Start Date End Date Chelsea Zuniga MD [address] [place] [id number] PCP - General Internal Medicine 04/19/24 documented as of this encounter
== END 2024-08-22 12:26 | disposition home or self-care (01) ==
PROVIDERS: Visit Provider Nurse Practitioner Family
DX: J02.8 Acute pharyngitis due to other specified organisms (principal); J06.9 Acute upper respiratory infection, unspecified; Z13.9 Encounter for screening, unspecified

== ENCOUNTER 2024-08-22 11:58 | Outpatient (REF) | payer OTHER, SELFPAY ==
[2024-08-22 15:37] LABS: Influenza A PCR NEGATIVE (Negative); Influenza B PCR NEGATIVE (Negative); Resp Syncy Virus RNA Qual PCR NEGATIVE (Negative); SARS COV2 PCR INHOUSE NEGATIVE (Negative)
== END 2024-08-22 11:59 | disposition home or self-care (01) ==
LOC: HO.LNP 11:58
PROVIDERS: Visit Provider Nurse Practitioner Family
DX: J02.8 Acute pharyngitis due to other specified organisms (principal); J06.9 Acute upper respiratory infection, unspecified; Z13.9 Encounter for screening, unspecified
CPT/HCPCS: 0241U; 87880; 99212